=== PATIENT | male | born 1965 | race Two or more races ===

== ENCOUNTER 2017-10-30 13:29 | Inpatient (IN) | payer OTHER, MEDICARE ==
[~2017-10-30] VITALS: Ht 177.8 cm; Wt 58.1 kg
[2017-10-30] MEDS ORDERED: OXYC30TA2 PO (14:00)
[2017-10-30] MEDS ORDERED: DIAZ10TA4 PO (14:00)
[2017-10-30] MEDS ORDERED: OXYC30TA86 PO (14:00)
[2017-10-30] MEDS ORDERED: TRAM50TA2 PO (14:00)
--- NOTE | 2017-10-30 14:00 | NUR ---
BLOOD DONOR UNIT ASSISTANT NOTE RECEIVED PT. PT IS A DIRECT ADMIT FROM [facility]. A/OX4. NO S/S OF DISTRESS OR SOB. PT HAS C/O PAIN OF 6/10 AT SACRAL AREA. IV ACCESS LOCATED ON LEFT WRIST 22G, SL. DECUBITIS ULCERS NOTED ON BILATERAL HEELS, SACRUM, AND COCCYX. PT HAS A SUPRAPUBIC CATHETER, PATENT AND IN PLACE. SAFETY MEASURES IN PLACE, CALL LIGHT WITHIN REACH. WILL CONTINUE TO MONITOR.
[2017-10-30 15:02] VITALS: BP 130/74
[2017-10-30 16:00] VITALS: BP 130/76
[2017-10-30] MEDS ORDERED: MAG HYDROX/AL HYDROX/SIMETH 30 ML UDC PO PRN (17:00)
[2017-10-30] MEDS ORDERED: ZOLPIDEM TARTRATE 5 MG TABLET PO PRN (17:00)
[2017-10-30] MEDS ORDERED: ACETAMINOPHEN 325 MG TABLET PO PRN (17:00)
[2017-10-30] MEDS: CEFTRIAXONE 1 G in IV D5W 50 ML IV SCH (17:00)
[2017-10-30] MEDS ORDERED: MAGNESIUM HYDROXIDE 30 ML UDC PO PRN (17:00)
[2017-10-30] MEDS: oxyCODONE IR immediate release 5 MG CAPSULE PO PRN ×2 (17:16→23:08)
[2017-10-30] MEDS ORDERED: TRAMADOL HCL 50 MG TABLET PO PRN ×2 (17:30→18:30)
[2017-10-30] MEDS ORDERED: DIAZEPAM 10 MG TABLET PO PRN (18:30)
[2017-10-30] MEDS ORDERED: Medication Not On Formulary EA (Oxycodone Hcl 30 MG) PO PRN (18:30)
--- NOTE | 2017-10-30 19:19 | NUR ---
RN CLOSING NOTE PT IS IN BED RESTING. A/OX4. WOUND CULTURE TAKEN. DRESSINGS CHANGED. SAFETY MEASURES IN PLACE, CALL LIGHT WITHIN REACH. WILL ENDORSE TO FUEL CELL BINDER FOR TREMAYNE.
--- NOTE | 2017-10-30 19:29 | NUR ---
RN OPENING NOTES RECEIVED REPORT FROM ZANDER. PT AWAKE AND ALERT IN BED. NO APPARENT S/S OF SOB OR DISTRESS. L HAND IV #22, SL. INFORMED PT THAT OXYCONTIN WAS SCHEDULED Q12 AND NEXT DOSE WAS AVAILABLE AT 21:00. SAFETY PRECAUTIONS IN PLACE, BED IN A LOW, LOCKED POSITION, 2XSIDERAILS UP AND CALL LIGHT WITHIN REACH. WILL CONTINUE TO MONITOR.
[2017-10-30 20:00] VITALS: BP 99/65
[2017-10-30 20:09] VITALS: BP 95/56
[2017-10-30] MEDS: oxyCODONE HCL SR 10MG TAB.SR.12H PO SCH (21:10)
[2017-10-30] MEDS: ONDANSETRON HCL/PF 4 MG/2 ML VIAL IVP PRN (22:54)
--- NOTE | 2017-10-30 22:55 | NUR ---
PT REQUESTED PAIN MEDICATION AND MEDICATION FOR NAUSEA. WILL ADMINISTER PRN ZOFRAN AND PRN Q4HR OXYCONTIN IR FOR PAIN LEVEL (07/10). WILL CONTINUE TO MONITOR.
--- NOTE | 2017-10-31 03:20 | NUR ---
PT REQUESTED PAIN MEDICATION FOR A PAIN LEVEL OF (8/10). WILL ADMINISTER PRN OXYCONTIN IR Q4HR. WILL CONTINUE TO MONITOR.
[2017-10-31] MEDS: oxyCODONE IR immediate release 5 MG CAPSULE PO PRN ×4 (03:29→21:52)
[2017-10-31 06:50] LABS: BASOPHILS % (AUTO) 0.6 % (0.0-2.0); EOSINOPHILS # (AUTO) 0.2 /CMM (0.0-0.7); EOSINOPHILS % (AUTO) 2.6 % (0.0-6.0); HEMATOCRIT 33 % (33-45); HEMOGLOBIN 10.8 g/dL (11.5-14.8); LYMPHOCYTES # (AUTO) 2.3 /CMM (0.8-4.8); LYMPHOCYTES % (AUTO) 33.6 % (20.0-44.0); MEAN CORPUSCULAR HEMOGLOBIN 28 PG (26.0-33.0); MEAN CORPUSCULAR HGB CONC 33 g/dl (31.0-36.0); MEAN CORPUSCULAR VOLUME 86 fL (82-100); MONOCYTES # (AUTO) 0.5 /CMM (0.1-1.30); MONOCYTES % (AUTO) 7.3 % (2.0-12.0); NEUTROPHILS # (AUTO) 3.8 /CMM (1.8-8.9); NEUTROPHILS % (AUTO) 55.9 % (43.0-81.0); PLATELET COUNT (AUTO) 289 /CMM (150-450); RDW COEFFICIENT OF VARIATION 12.9 (11.5-15.0); RED BLOOD CELL COUNT(AUTO) 3.85 MIL/uL (4.0-5.2); WHITE BLOOD COUNT (AUTO) 6.8 K/uL (4.3-11.0)
--- NOTE | 2017-10-31 06:53 | NUR ---
RN CLOSING NOTES PT AWAKE AND ALERT IN BED. NO APPARENT S/S OF SOB OR DISTRESS. L HAND IV #22, SL. PT NEXT AVAILABLE DOSE OF PRN OXYCONTIN IR IS 0730. PAIN MANAGEMENT HAS BEEN THE PATIENT'S NUMBER ONE CONCERN. MRSA SWAB COMPLETED. SAFETY PRECAUTIONS IN PLACE, BED IN A LOW, LOCKED POSITION, 2XSIDERAILS UP AND CALL LIGHT WITHIN REACH. WILL ENDORSE TO THE DAY SHIFT NURSE FOR CONTINUITY OF CARE.
[2017-10-31 06:57] LABS: CALCIUM, SERUM 9.1 mg/dL (8.5-10.1); CREATININE 0.7 mg/dL (0.6-1.3); MAGNESIUM 1.9 mg/dL (1.8-2.4); PHOSPHORUS 3.8 mg/dL (2.5-4.9); POTASSIUM 3.8 mmol/L (3.5-5.1)
--- NOTE | 2017-10-31 07:23 | NUR ---
RN OPENING NOTES RECEIVED PT AWAKE IN BED IN NO ACUTE SIGNS OF DISTRESS. A/O X 4 AND VERBALLY RESPONSIVE. IV ACCESS ON L HAND G#22 INTACT AND PATENT, SL. ON ROOM AIR, BREATHING EVEN AND UNLABORED. HOB ELEVATED. BED IN A LOW, LOCKED POSITION WITH SIDE-RAILS UP X2. CALL LIGHT WITHIN REACH. WILL CONTINUE TO MONITOR PT ACCORDINGLY.
[2017-10-31 08:00] VITALS: BP 93/56
[2017-10-31] MEDS: oxyCODONE HCL SR 10MG TAB.SR.12H PO SCH ×2 (08:04→20:19)
--- NOTE | 2017-10-31 08:05 | NUR ---
RN NOTES PATIENT COMPLAINED OF PAIN ON THE SACRAL AREA WITH INTENSITY OF 10/10, OXYCONTIN 30MG TAB GIVEN P.O. WILL MONITOR EFFECTIVENESS OF PAIN MED.
--- NOTE | 2017-10-31 09:43 | NUR ---
WOUND CARE CONSULT: PT PRESENTS WITH MULTIPLE WOUNDS PRESENT ON ADMISSION INCLUDING BILATERAL ISCHIAL STAGE 4 ULCERS, SACRAL STAGE 4 ULCER, RT BUTTOCK STAGE 2 AND LEFT BUTTOCK UNSTAGEABLE ULCER WELL LOWER EXTREMITY WOUNDS (STAGE 4 LEFT HEEL AND LEFT FOOT ESCHAR). PT REFUSED TO REMOVE BACK SUPPORT BRACES, MAKING SKIN ASSESSMENT INCOMPLETE. PT STATES HAS OPEN AREA TO PENIS FROM PREVIOUS SURGERY. PT EXAMINED BY DR SANDERSON. ORDERS RECEIVED AND DISCUSSED WITH NURSING STAFF. ALL SKIN PROTECTION RECOMMENDATIONS MADE AND DISCUSSED WITH NURSING STAFF. PT HAS SUPRAPUBIC CATH. ANDREA ISOFLEX LOW AIRLOSS BED TO BE PLACED WHEN AVAILABLE. WILL SEE PRN. PT STATES HAS NO APPETITE. MD IN AGREEMENT WITH PLAN OF CARE. Addendum: 10/31/17 at 0947 by EVENS VÁSQUEZ WNDNU Amended: Links added.
[2017-10-31] MEDS ORDERED: Z GUARD REMEDY 2 OZ OINT TP PRN (10:00)
--- NOTE | 2017-10-31 10:35 | NUR ---
RN NOTES PT SEEN AND EVALUATED BY FRANCISCO JAVIER SAMANO DPM WITH ORDER TO OBTAIN CONSENT FOR DEBRIDEMENT OF LEFT HEEL WOUND. PROCEDURE WAS EXPLAINED TO PT AND VERBALIZED UNDERSTANDING. CONSENT SIGNED BY PT AND FILED ON CHART.
[2017-10-31] MEDS: Z GUARD REMEDY 2 OZ OINT TP PRN (11:21)
[2017-10-31] MEDS: HYDROGEL DRESSING 90 GM TUBE TP SCH (11:21)
[2017-10-31] MEDS: Z GUARD REMEDY 2 OZ OINT TP SCH (11:22)
[2017-10-31] MEDS: NEOMY SULF/BACITRAC ZN/POLY 15 GM TUBE TP SCH (11:22)
--- NOTE | 2017-10-31 11:31 | NUR ---
RN NOTES WOUND DEBRIDEMENT OF LEFT HEEL WOUND DONE BT DR GAY. DRESSING INTACT, DRY WITH NO ACTIVE BLEEDING NOTED. WILL CONTINUE TO MONITOR
[2017-10-31] MEDS: ONDANSETRON HCL/PF 4 MG/2 ML VIAL IVP PRN ×2 (12:01→21:35)
--- NOTE | 2017-10-31 15:02 | NUR ---
RN NOTES PT SEEN AND EVALUATED BY COUNTER TACKER WITH RECOMMENDATION TO GIVE PROSTAT 30ML BID, ZINC SULFATE 220MG DAILY AND VIT C 500MG DAILY, INFORMED DR WALSH AND AGREED. ORDERS CARRIED OUT.
[2017-10-31 16:00] VITALS: BP 111/65
[2017-10-31] MEDS: PROSOURCE / PROSTAT (PYXIS) 30 ML UDC GT SCH (16:30)
[2017-10-31] MEDS: CEFTRIAXONE 1 G in IV D5W 50 ML IV SCH (16:30)
--- NOTE | 2017-10-31 17:17 | NUR ---
RN NOTES PT'S IV LINE ON LEFT HAND DISLODGED, MINIMAL BLEEDING NOTED, PRESSURE GAUZE APPLIED. NEW IV LINE INSERTED AT LEFT WRIST G#22 AND SECURED WITH TAPE. WILL CONTINUE TO MONITOR
[2017-10-31] MEDS ORDERED: BOOST PLUS FOOD-VANILLA 237 ML BOX PO SCH (18:00)
--- NOTE | 2017-10-31 19:15 | NUR ---
MS RN OPENING NOTES: RECEIVED PT RESTING IN BED AWAKE AND WATCHING TV. PT IS A/O X 4 AND VERBALLY RESPONSIVE. IV ACCESS ON L WRIST G#22 AND IS INTACT AND PATENT AND CURRENTLY S/L. ON ROOM AIR, BREATHING EVEN AND UNLABORED. HOB ELEVATED. MAINTAINED BED IN A LOW, LOCKED POSITION WITH SIDE-RAILS UP X2. CALL LIGHT WITHIN REACH. WILL CONTINUE TO MONITOR PT.
--- NOTE | 2017-10-31 19:19 | NUR ---
RN CLOSING NOTES PT RESTING IN BED AWAKE AND WATCHING TV. A/O X 4 AND VERBALLY RESPONSIVE. ALL NEEDS AND CARE ATTENDED WELL. IV ACCESS ON L WRIST G#22 INTACT AND PATENT, SL. ON ROOM AIR, BREATHING EVEN AND UNLABORED. HOB ELEVATED. MAINTAINED BED IN A LOW, LOCKED POSITION WITH SIDE-RAILS UP X2. CALL LIGHT WITHIN REACH. ENDORSED TO PEWTER FABRICATOR NURSE FOR TREMAYNE..
--- NOTE | 2017-10-31 20:31 | NUR ---
Met with patient, he is alert, stated he lives alone in an [address] at [address] [place]. He is not ambulatory due to paraplegia and developed multiple ulcers to back/sacral and both heels. He requires assistance with adl's. Has DME: wheelchair, shower bench and raised toilet seat. He has suprapubic catheter due ot neurogenic bladder. Patient has IHSS provider and would like assistance with reinstatement of IHSS if he goes home. He is currently on service with homehealth but he don't remember the contact info. Patient reports that he has been in and out between hospital, snf and home. Last SNF stay was last year at [facility] . Patient want to go to a SNF once discharge due to no support system at home but stated he has no more Medicare SNF days. Will contact [place] to request approval for SNF placement . Addendum: 10/31/17 at 2033 by ASHLIE OSORIO RN Amended: Links added.
[2017-10-31 21:07] VITALS: BP 102/68
[2017-11-01] MEDS: oxyCODONE IR immediate release 5 MG CAPSULE PO PRN ×5 (01:53→22:06)
[2017-11-01] MEDS: ONDANSETRON HCL/PF 4 MG/2 ML VIAL IVP PRN ×3 (05:31→22:07)
[2017-11-01] MEDS: DIAZEPAM 10 MG TABLET PO PRN ×2 (05:32→18:45)
--- NOTE | 2017-11-01 07:30 | NUR ---
RN OPENING NOTES RECEIVED PATIENT IN BED RESTING, A/OX4. NO ACUTE DISTRESS, NO SOB NOTED, DENIES PAIN AT THE MOMENT. IV SITE INTACT AND PATENT. KEPT PATIENT SAFE AND COMFORTABLE. BED IN LOW POSITION, HOB ELEVATED, LOCKED, SIDERAILS UP X2. CALL LIGHT IN REACH. WILL CONTINUE TO MONITOR ACCORDINGLY.
[2017-11-01 07:36] LABS: BASOPHILS % (AUTO) 0.6 % (0.0-2.0); EOSINOPHILS # (AUTO) 0.2 /CMM (0.0-0.7); EOSINOPHILS % (AUTO) 2.5 % (0.0-6.0); HEMATOCRIT 35 % (39-51); HEMOGLOBIN 11.8 g/dL (13.5-17.5); LYMPHOCYTES # (AUTO) 1.7 /CMM (0.8-4.8); LYMPHOCYTES % (AUTO) 28.3 % (20.0-44.0); MEAN CORPUSCULAR HEMOGLOBIN 29 PG (26.0-33.0); MEAN CORPUSCULAR HGB CONC 33 g/dl (31.0-36.0); MEAN CORPUSCULAR VOLUME 86 fL (80-96); MONOCYTES # (AUTO) 0.4 /CMM (0.1-1.30); MONOCYTES % (AUTO) 6.4 % (2.0-12.0); NEUTROPHILS # (AUTO) 3.8 /CMM (1.8-8.9); NEUTROPHILS % (AUTO) 62.2 % (43.0-81.0); PLATELET COUNT (AUTO) 310 /CMM (150-450); RDW COEFFICIENT OF VARIATION 12.5 (11.5-15.0); RED BLOOD CELL COUNT(AUTO) 4.13 MIL/uL (4.5-6.0); WHITE BLOOD COUNT (AUTO) 6.2 K/uL (4.3-11.0)
[2017-11-01 08:00] VITALS: BP 101/62
[2017-11-01 08:00] LABS: CREATININE 0.7 mg/dL (0.6-1.3)
[2017-11-01 08:23] VITALS: BP 101/62
[2017-11-01] MEDS: ZINC SULFATE 220 MG CAPSULE PO SCH (08:46)
[2017-11-01] MEDS: ASCORBIC ACID 500 MG TABLET PO SCH (08:46)
[2017-11-01] MEDS: oxyCODONE HCL SR 10MG TAB.SR.12H PO SCH ×2 (08:47→20:32)
[2017-11-01] MEDS: Z GUARD REMEDY 2 OZ OINT TP SCH (08:52)
[2017-11-01] MEDS: HYDROGEL DRESSING 90 GM TUBE TP PRN (08:52)
[2017-11-01] MEDS: CADEXOMER IODINE 40 GM TUBE TP SCH (09:00)
[2017-11-01] MEDS: PROSOURCE / PROSTAT (PYXIS) 30 ML UDC GT SCH ×2 (09:00→16:47)
[2017-11-01] MEDS: HYDROGEL DRESSING 90 GM TUBE TP SCH (09:19)
[2017-11-01] MEDS ORDERED: SILVER NITRATE APPLICATOR 1 EA BOX TP ONE (10:00)
[2017-11-01] MEDS ORDERED: LIDOCAINE 2%-EPI 1:100,000 30 ML VIAL TP ONE (10:00)
[2017-11-01] MEDS ORDERED: ENOXAPARIN SODIUM 40 MG/0.4 ML DISP.SYRIN SQ SCH (10:00)
[2017-11-01] MEDS: NEOMY SULF/BACITRAC ZN/POLY 15 GM TUBE TP SCH (10:11)
--- NOTE | 2017-11-01 11:00 | NUR ---
RN NOTES PULLED OUT OXYCONTIN IR IN OMNICELL BUT RETURNED IT, PULLED OUT WRONG DOSE. RETURNED WITNESS BY AIDEN GAXIOLA AND AIDEN CASE.
--- NOTE | 2017-11-01 15:26 | NUR ---
RN NOTES PER DR WALSH, NO ANTICOAGULANT.
[2017-11-01 16:00] VITALS: BP 96/65
[2017-11-01] MEDS: CEFTRIAXONE 1 G in IV D5W 50 ML IV SCH (16:10)
--- NOTE | 2017-11-01 19:26 | NUR ---
RN CLOSING NOTES PATIENT IN BED WATCHING TV. NO CHANGE IN PATIENT'S CONDITION. NO ACUTE DISTRESS, NO SOB NOTED. ALL NEEDS ATTENDED AND PROVIDED. WOUND CARE DONE. BED IN LOCKED, LOW POSITION, SIDERAILS UPX2. CALL LIGHT IN REACH. ENDORSED TO LITHOGRAPHER APPRENTICE RN FOR TREMAYNE.
[2017-11-01 20:00] VITALS: BP 100/61
--- NOTE | 2017-11-01 20:00 | NUR ---
RN NOTES RECEIVED PATIENT IN BED, ALERT AND ORIENTED X4, CALM AT THIS TIME, NO SOB, NO RESPIRATORY DISTRESS, ABLE TO VERBALIZE NEEDS, SPO2 AT ROOM AIR 96%, LUNG SOUNDS ARE CLEAR, ABDOMEN SOFT AND NON-TENDER, SUPRAPUBIC CATHETER DRAINING WELL OF CLEAR AND YELLOW URINE, PARAPLEGIC, REFUSED DVT PUMP, EXPLAINED TO PATIENT RISKS AND BENEFITS, PATIENT STILL REFUSED, WILL REQUIRE ASSISTANCE WITH ADLS. KEPT SAFE AND COMFORTABLE, CALL LIGHT WITHIN REACH.
[2017-11-01 20:52] VITALS: BP 100/61
[2017-11-02] MEDS: oxyCODONE IR immediate release 5 MG CAPSULE PO PRN ×6 (02:12→22:55)
[2017-11-02] MEDS: DIAZEPAM 10 MG TABLET PO PRN ×2 (04:26→17:07)
--- NOTE | 2017-11-02 06:30 | NUR ---
RN NOTES GIVEN OXYCODONE IR 30 MG PO PRN, VSS, COMPLAINING OF 9/10 SACRAL PAIN, MADE COMFORTABLE,
--- NOTE | 2017-11-02 06:33 | NUR ---
RN NOTES PATIENT IS ALERT AND AWAKE, NO RESPIRATORY DISTRESS, CALM, PROVIDED PAIN MEDICATION DURING SHIFT PRN, LEFT WRIST SALINE LOCK IS PATENT, OFFERED TO CHANGE SACRAL DRESSING, PATIENT REFUSED. PER PATIENT "THE DRESSING WAS CHANGED AT 1800 LAST NIGHT. I DON'T NEED IT RIGHT NOW." SUPRAPUBIC CATHETER DRAINING WELL, ALL NEEDS ATTENDED, CALL LIGHT WITHIN REACH.
--- NOTE | 2017-11-02 07:10 | NUR ---
RN NOTES PT IS AWAKE, RESTING COMFORTABLY IN BED WITH NO SIGNS OF DISTRESS. PT ON RA, RESPIRATIONS ARE EVEN AND UNLABORED. IV ON L WRIST, INTACT. SAFETY MEASURES ARE IN PLACE, CALL LIGHT IS IN REACH. WILL CONTINUE TO MONITOR
[2017-11-02 07:19] LABS: BASOPHILS % (AUTO) 0.5 % (0.0-2.0); EOSINOPHILS # (AUTO) 0.2 /CMM (0.0-0.7); EOSINOPHILS % (AUTO) 3.3 % (0.0-6.0); HEMATOCRIT 33 % (39-51); HEMOGLOBIN 11.2 g/dL (13.5-17.5); LYMPHOCYTES # (AUTO) 1.8 /CMM (0.8-4.8); MEAN CORPUSCULAR HEMOGLOBIN 29 PG (26.0-33.0); MEAN CORPUSCULAR HGB CONC 34 g/dl (31.0-36.0); MEAN CORPUSCULAR VOLUME 86 fL (80-96); MONOCYTES # (AUTO) 0.4 /CMM (0.1-1.30); MONOCYTES % (AUTO) 6.7 % (2.0-12.0); NEUTROPHILS # (AUTO) 3.5 /CMM (1.8-8.9); NEUTROPHILS % (AUTO) 58.5 % (43.0-81.0); PLATELET COUNT (AUTO) 271 /CMM (150-450); RDW COEFFICIENT OF VARIATION 12.7 (11.5-15.0); RED BLOOD CELL COUNT(AUTO) 3.84 MIL/uL (4.5-6.0); WHITE BLOOD COUNT (AUTO) 5.9 K/uL (4.3-11.0)
[2017-11-02 07:43] LABS: CALCIUM, SERUM 8.9 mg/dL (8.5-10.1); CREATININE 0.7 mg/dL (0.6-1.3); POTASSIUM 3.9 mmol/L (3.5-5.1)
[2017-11-02 08:00] VITALS: BP 105/64
[2017-11-02] MEDS: PROSOURCE / PROSTAT (PYXIS) 30 ML UDC GT SCH ×2 (08:36→16:14)
[2017-11-02] MEDS: ASCORBIC ACID 500 MG TABLET PO SCH (08:36)
[2017-11-02] MEDS: ZINC SULFATE 220 MG CAPSULE PO SCH (08:36)
[2017-11-02] MEDS: oxyCODONE HCL SR 10MG TAB.SR.12H PO SCH ×2 (08:36→20:49)
[2017-11-02] MEDS: HYDROGEL DRESSING 90 GM TUBE TP PRN (08:38)
[2017-11-02] MEDS: Z GUARD REMEDY 2 OZ OINT TP PRN (08:39)
[2017-11-02] MEDS: NEOMY SULF/BACITRAC ZN/POLY 15 GM TUBE TP SCH (08:39)
[2017-11-02] MEDS: Z GUARD REMEDY 2 OZ OINT TP SCH (08:39)
[2017-11-02] MEDS: HYDROGEL DRESSING 90 GM TUBE TP SCH (08:40)
[2017-11-02] MEDS: CADEXOMER IODINE 40 GM TUBE TP SCH (08:41)
[2017-11-02] MEDS: ONDANSETRON HCL/PF 4 MG/2 ML VIAL IVP PRN ×2 (09:58→16:14)
[2017-11-02 16:00] VITALS: BP 106/59
[2017-11-02] MEDS: CEFTRIAXONE 1 G in IV D5W 50 ML IV SCH (16:14)
--- NOTE | 2017-11-02 18:41 | NUR ---
RN NOTES PT IS SITTING UP IN BED, RESTING COMFORTABLY. PT ON RA, RESPIRATIONS ARE EVEN AND UNLABORED. IV ON L WRIST INTACT AND SL. PAIN MEDICATIONS WERE GIVEN ORDERED. WOUND DEBRIDEMENT DONE AND DRESSINGS CHANGED. ALL PT NEEDS MET. ROBLEDO CATHETER OUTPUT 1800ML. SAFETY MEASURES ARE IN PLACE, CALL LIGHT IS IN REACH. WILL ENDORSE TO COMMERCIAL PRINT SALESMAN RN FOR CONTINUITY OF CARE.
--- NOTE | 2017-11-02 19:30 | NUR ---
Received patient in the bed.No unusual signs or symptoms observed or reported,no signs of discomfort or distress.VS taken all are in the normal range
[2017-11-02 19:57] VITALS: BP 111/71
[2017-11-03] MEDS: oxyCODONE IR immediate release 5 MG CAPSULE PO PRN ×5 (03:00→22:23)
[2017-11-03] MEDS: oxyCODONE HCL SR 10MG TAB.SR.12H PO SCH ×2 (07:00→20:44)
[2017-11-03 07:12] LABS: BASOPHILS % (AUTO) 0.3 % (0.0-2.0); EOSINOPHILS # (AUTO) 0.2 /CMM (0.0-0.7); EOSINOPHILS % (AUTO) 2.3 % (0.0-6.0); HEMATOCRIT 42 % (39-51); HEMOGLOBIN 13.7 g/dL (13.5-17.5); LYMPHOCYTES # (AUTO) 1.9 /CMM (0.8-4.8); LYMPHOCYTES % (AUTO) 28.5 % (20.0-44.0); MEAN CORPUSCULAR HEMOGLOBIN 29 PG (26.0-33.0); MEAN CORPUSCULAR HGB CONC 33 g/dl (31.0-36.0); MEAN CORPUSCULAR VOLUME 86 fL (80-96); MONOCYTES # (AUTO) 0.4 /CMM (0.1-1.30); NEUTROPHILS # (AUTO) 4.2 /CMM (1.8-8.9); NEUTROPHILS % (AUTO) 62.9 % (43.0-81.0); PLATELET COUNT (AUTO) 342 /CMM (150-450); RDW COEFFICIENT OF VARIATION 12.4 (11.5-15.0); WHITE BLOOD COUNT (AUTO) 6.7 K/uL (4.3-11.0)
[2017-11-03 07:24] LABS: CALCIUM, SERUM 9.7 mg/dL (8.5-10.1); CREATININE 0.7 mg/dL (0.6-1.3); POTASSIUM 4.4 mmol/L (3.5-5.1)
--- NOTE | 2017-11-03 07:35 | NUR ---
MS RN OPENING NOTE PATIENT IS ALERT AND ORIENTED x4. NO PAIN AT THIS TIME. NO SOB OR DISTRESS NOTED. CALL LIGHT WITHIN REACH. SAFETY MEASURES IMPLEMENTED. ON ROOM AIR TOLERATING WELL. HAS SUPRAPUBIC CATHETER IN PLACE, NO SEDIMENT NOTED. REGULAR DIET AND TOLERATING WELL. LEFT ARM IV INTACT AND PATENT NO REDNESS OR SWELLING NOTED. HAS LABS TODAY, AWAITING RESULTS. WILL CONTINUE TO MONITOR THROUGHOUT SHIFT.
[2017-11-03 08:00] VITALS: BP 107/77
[2017-11-03] MEDS: CADEXOMER IODINE 40 GM TUBE TP SCH (08:22)
[2017-11-03] MEDS: Z GUARD REMEDY 2 OZ OINT TP SCH (08:22)
[2017-11-03] MEDS: ASCORBIC ACID 500 MG TABLET PO SCH (08:22)
[2017-11-03] MEDS: ZINC SULFATE 220 MG CAPSULE PO SCH (08:22)
[2017-11-03] MEDS: PROSOURCE / PROSTAT (PYXIS) 30 ML UDC GT SCH ×2 (08:22→16:20)
[2017-11-03] MEDS: HYDROGEL DRESSING 90 GM TUBE TP SCH (08:23)
[2017-11-03] MEDS: NEOMY SULF/BACITRAC ZN/POLY 15 GM TUBE TP SCH (08:23)
[2017-11-03] MEDS ORDERED: FEE PK DOSING 1 MIN EA MC ONE (09:41)
--- NOTE | 2017-11-03 11:00 | NUR ---
MS RN NOTE CHANGED WOUND DRESSINGS, PATIENT TOLERATED WELL, PAIN MEDICATION GIVEN PRIOR TO WOUND DRESSING CHANGE. WILL CHANGE NEEDED OR WHEN SOILED
[2017-11-03] MEDS: GENTAMICIN 300 MG in IV D5W 100 ML IV SCH (11:45)
--- NOTE | 2017-11-03 14:19 | NUR ---
MS RN NOTE PATIENT'S IV ON LEFT WRIST BEGAN TO LEAK. IV REMOVED. NEW IV STARTED ON RIGHT FOREARM 22G INTACT AND PATENT, FLUSHES WELL.
[2017-11-03 16:00] VITALS: BP 97/68
[2017-11-03] MEDS: DIAZEPAM 10 MG TABLET PO PRN (16:21)
--- NOTE | 2017-11-03 18:47 | NUR ---
MS RN CLOSING NOTE PATIENT IS ALERT AND ORIENTED x4. NO PAIN AT THIS TIME. NO SOB OR DISTRESS NOTED. CALL LIGHT WITHIN REACH AT ALL TIMES. SAFETY MEASURES IMPLEMENTED. ALL DUE MEDICATIONS GIVEN ORDERED. ALL NURSING CARE NEEDS ATTENDED TO. SUPRAPUBIC CATH IN PLACE, CLEAR AND YELLOW. ALL WOUND DRESSING CHANGED. AM LABS. IV ON RIGHT FOREARM INTACT AND PATENT. WILL ENDORSE TO FLAME HARDENING MACHINE OPERATOR FOR TREMAYNE.
--- NOTE | 2017-11-03 19:15 | NUR ---
RN NOTES RECEIVED PT AWAKE, SITTING IN BED, ON ROOM AIR AND TOLERATED WELL. PT ALERT AND ORIENTED X4, PAIN ON SACRAL AREA AT TOLERABLE LEVEL AT THIS TIME. IV ACCESS ON RIGHT FOREARM PATENT AND INTACT. SUPRAPUBIC CATH INTACT WITH CLEAR YELLOW URINE OUTPUT NOTED. WOUND DRESSING CLEAN, DRY AND INTACT. KEPT BED AT LOWEST POSITION, LOCKED, BED ALARM ON, SIDE RAILS X2 UP, WITH CALL LIGHT WITH IN REACH. KEPT COMFORTABLE AND ATTENDED. WILL CONTINUE TO MONITOR PT.
[2017-11-03 20:00] VITALS: BP 103/70
[2017-11-03 22:00] VITALS: BP 103/70
[2017-11-03] MEDS: ONDANSETRON HCL/PF 4 MG/2 ML VIAL IVP PRN (22:21)
--- NOTE | 2017-11-03 22:21 | NUR ---
RN NOTES PT FEELS NAUSEATED, ZOFRAN 4 MG GIVEN IVP. WILL CONTINUE TO MONITOR PT.
--- NOTE | 2017-11-03 22:23 | NUR ---
RN NOTES PT COMPLAINS 8/10 PAIN ON SACRAL AREA, OXY IR 30 MG GIVEN PO AND TOLERATED WELL. WILL CONTINUE TO MONITOR PT.
[2017-11-04] MEDS: oxyCODONE IR immediate release 5 MG CAPSULE PO PRN ×5 (02:39→19:57)
--- NOTE | 2017-11-04 02:39 | NUR ---
RN NOTES PT COMPLAINS OF 8/10 PAIN ON SACRAL AREA, OXY IR 30 MG TAB GIVEN PO. WILL CONTINUE TO MONITOR PT.
[2017-11-04 06:33] LABS: BASOPHILS % (AUTO) 0.4 % (0.0-2.0); EOSINOPHILS # (AUTO) 0.2 /CMM (0.0-0.7); EOSINOPHILS % (AUTO) 3.3 % (0.0-6.0); HEMATOCRIT 37 % (39-51); LYMPHOCYTES % (AUTO) 27.7 % (20.0-44.0); MEAN CORPUSCULAR HEMOGLOBIN 28 PG (26.0-33.0); MEAN CORPUSCULAR HGB CONC 33 g/dl (31.0-36.0); MEAN CORPUSCULAR VOLUME 87 fL (80-96); MONOCYTES # (AUTO) 0.5 /CMM (0.1-1.30); MONOCYTES % (AUTO) 7.7 % (2.0-12.0); NEUTROPHILS # (AUTO) 4.3 /CMM (1.8-8.9); NEUTROPHILS % (AUTO) 60.9 % (43.0-81.0); PLATELET COUNT (AUTO) 318 /CMM (150-450); RDW COEFFICIENT OF VARIATION 12.8 (11.5-15.0); RED BLOOD CELL COUNT(AUTO) 4.26 MIL/uL (4.5-6.0)
--- NOTE | 2017-11-04 06:42 | NUR ---
RN NOTES PT COMPLAINS OF 8/10 PAIN ON THE SACRAL AREA, OXY IR 30 MG TAB GIVEN PO AND TOLERATED WELL. WILL CONTINUE TO MONITOR PT.
[2017-11-04 06:43] LABS: CALCIUM, SERUM 9.3 mg/dL (8.5-10.1); CREATININE 0.7 mg/dL (0.6-1.3); POTASSIUM 4.2 mmol/L (3.5-5.1)
--- NOTE | 2017-11-04 07:00 | NUR ---
RN NOTES PT SLEPT INTERMITTENTLY DURING THE NIGHT. VITAL SIGNS STABLE, AFEBRILE. ON ROOM AIR AND TOLERATED WELL. PT FEELS NAUSEATED X1 CONTROLLED WITH ZOFRAN. KEPT PAIN AT TOLERABLE LEVEL. WOUND DRESSING INTACT, CLEAN AND DRY . SUPRAPUBIC CATH INTACT AND DRAINING WELL.. ALL NEEDS ATTENDED. SAFETY MEASURES AND FALL PRECAUTION OBSERVED. WILL ENDORSE TO MORNING RN FOR CONTINUITY OF CARE.
--- NOTE | 2017-11-04 07:30 | NUR ---
MS RN OPENING NOTE PATIENT IS ALERT AND ORIENTED x4. NO PAIN AT THIS TIME. NO SOB OR DISTRESS NOTED. CALL LIGHT WITHIN REACH. SAFETY MEASURES IMPLEMENTED. ABLE TO COMMUNICATE NEEDS. IV ON RIGHT FOREARM INTACT AND PATENT NO REDNESS OR SWELLING NOTED. SUPRAPUBIC CATHETER IN PLACE, CLEAR YELLOW URINE PRESENT. WOUND TREATMENT TO BE DONE ON SHIFT. BEDREST. WILL CONTINUE TO MONITOR PATIENT THROUGHOUT SHIFT
[2017-11-04 08:00] VITALS: BP 118/78
[2017-11-04] MEDS: oxyCODONE HCL SR 10MG TAB.SR.12H PO SCH ×2 (08:24→21:27)
[2017-11-04] MEDS: ASCORBIC ACID 500 MG TABLET PO SCH (08:25)
[2017-11-04] MEDS: PROSOURCE / PROSTAT (PYXIS) 30 ML UDC GT SCH ×2 (08:25→16:42)
[2017-11-04] MEDS: ZINC SULFATE 220 MG CAPSULE PO SCH (08:25)
[2017-11-04] MEDS: CADEXOMER IODINE 40 GM TUBE TP SCH (09:12)
[2017-11-04] MEDS: NEOMY SULF/BACITRAC ZN/POLY 15 GM TUBE TP SCH (09:12)
[2017-11-04] MEDS: Z GUARD REMEDY 2 OZ OINT TP SCH (09:12)
[2017-11-04] MEDS: HYDROGEL DRESSING 90 GM TUBE TP SCH (09:12)
[2017-11-04] MEDS: GENTAMICIN 300 MG in IV D5W 100 ML IV SCH (11:20)
[2017-11-04] MEDS: ONDANSETRON HCL/PF 4 MG/2 ML VIAL IVP PRN (14:31)
[2017-11-04 16:00] VITALS: BP 112/76
[2017-11-04] MEDS: DIAZEPAM 10 MG TABLET PO PRN (18:08)
--- NOTE | 2017-11-04 18:38 | NUR ---
MS RN CLOSING NOTE PATIENT IS ALERT AND ORIENTED x4. NO PAIN AT THIS TIME. NO SOB OR DISTRESS NOTED. CALL LIGHT WITHIN REACH AT ALL TIMES. SAFETY MEASURES IMPLEMENTED. ALL DUE MEDICATIONS GIVEN ORDERED. IV INTACT AND PATENT NO REDNESS OR SWELLING NOTED. PATIENT STATES THAT HE BECOMES ITCHY AFTER RECEIVING ANTIBIOTIC, WILL NOTIFY MD. WOUND TREATMENT DONE ON SHIFT. PATIENT REFUSED BED BATH. WILL ENDORSE TO BUYER TOBACCO HEAD NURSE FOR TREMAYNE
--- NOTE | 2017-11-04 18:59 | NUR ---
MS RN NOTE DR GOMEZ CALLED FOR BENADRYL ORDER. AWAITING CALL BACK FOR ORDER. WILL ENDORSE TO CONSTRUCTION PROJECT MGR RN
--- NOTE | 2017-11-04 19:07 | NUR ---
MS RN NOTE RECEIVED ORDERS FROM DR. GOMEZ. NEW ORDER NOTED AND CARRIED OUT
[2017-11-04] MEDS ORDERED: diphenhydrAMINE HCL 25 MG CAPSULE PO PRN (19:30)
--- NOTE | 2017-11-04 19:52 | NUR ---
RN NOTES PATIENT IN BED, ALERT AND ORIENTED X4, CALM, NO SOB, TOLERATING ROOM AIR, SPO2 98%, HAS CHRONIC PAIN, REQUIRES PAIN MEDICATION [id number]. BEING CLOSELY MONITORED FOR ASE OF NARCOTICS, SUPRAPUBIC CATHETER DRAINING WELL, KEPT SAFE AND COMFORTABLE, CALL LIGHT WITHIN REACH.
[2017-11-04 20:00] VITALS: BP 108/65
[2017-11-04 20:14] VITALS: BP 108/65
[2017-11-05] MEDS: oxyCODONE IR immediate release 5 MG CAPSULE PO PRN ×5 (00:08→22:52)
--- NOTE | 2017-11-05 05:37 | NUR ---
RN NOTES OFFERED WOUND CARE, PATIENT REFUSED, PER PATIENT "NOT AT THIS TIME."
--- NOTE | 2017-11-05 06:29 | NUR ---
RN NOTES PATIENT IN BED, ALERT AND AWAKE, NO SOB, NO RESIDUAL DROWSINESS FROM NARCOTIC PAIN MEDICATION, NO RESPIRATORY DISTRESS, PROVIDED PAIN MEDICATION NEEDED, ALL NEEDS ATTENDED, CALL LIGHT WITHIN REACH.
[2017-11-05 08:00] VITALS: BP 126/81
--- NOTE | 2017-11-05 08:12 | NUR ---
RN OPENING NOTES RECEIVED PATIENT RESTING COMFORTABLY IN BED. AOX4. COMPLAINING OF PAIN ON THE SACRUM AND ABDOMEN. DENIES SOB OR CP. RESPIRATIONS EVEN AND UNLABORED. NO ACUTE DISTRESS. PATIENT IS A PARAPLEGIC. SUPRAPUBIC CATHETER IN PLACE DRAINING CLOUDY YELLOW URINE. IV ACCESS ON THE RFA 22G PATENT AND INTACT. BED LOCKED IN THE LOWEST POSITION WITH SIDE RAILS UP X2. CALL LIGHT WITHIN REACH. WILL CONTINUE TO MONITOR ASSESS AND EDUCATED PATIENT THROUGHOUT SHIFT.
[2017-11-05] MEDS: oxyCODONE HCL SR 10MG TAB.SR.12H PO SCH ×2 (09:48→21:13)
[2017-11-05] MEDS: ZINC SULFATE 220 MG CAPSULE PO SCH (09:48)
[2017-11-05] MEDS: DIAZEPAM 10 MG TABLET PO PRN (09:48)
[2017-11-05] MEDS: ASCORBIC ACID 500 MG TABLET PO SCH (09:48)
[2017-11-05] MEDS: NEOMY SULF/BACITRAC ZN/POLY 15 GM TUBE TP SCH (09:48)
[2017-11-05] MEDS: CADEXOMER IODINE 40 GM TUBE TP SCH (09:49)
[2017-11-05] MEDS: Z GUARD REMEDY 2 OZ OINT TP SCH (09:51)
[2017-11-05] MEDS: HYDROGEL DRESSING 90 GM TUBE TP SCH (09:52)
[2017-11-05] MEDS: PROSOURCE / PROSTAT (PYXIS) 30 ML UDC GT SCH ×2 (09:53→16:41)
--- NOTE | 2017-11-05 11:30 | NUR ---
RN NTOES DRESSING CHANGE DONE. FOLLOWED PER WOUND CARE. WILL CONTINUE TO MANAGE PAIN.
[2017-11-05 11:52] LABS: CALCIUM, SERUM 9.5 mg/dL (8.5-10.1); POTASSIUM 4.4 mmol/L (3.5-5.1)
[2017-11-05] MEDS: GENTAMICIN 300 MG in IV D5W 100 ML IV SCH (11:57)
[2017-11-05 16:00] VITALS: BP 97/55
--- NOTE | 2017-11-05 19:00 | NUR ---
RN NOTES PATIENT CARE CONTINUED INTO NEXT SHIFT.
[2017-11-05 20:00] VITALS: BP 105/69
[2017-11-06] MEDS: oxyCODONE IR immediate release 5 MG CAPSULE PO PRN ×4 (03:42→21:25)
--- NOTE | 2017-11-06 07:00 | NUR ---
RN CLOSING NOTES PATIENT RESTING COMFORTABLE IN BED. AOX4. RESPIRATION EVEN AND UNLABORED. NO ACUTE DISTRESS. IV ACCESS RFA 22G PATENT AND INTACT. DENIES CP OR SOB. DRESSING CLEAN AND INTACT. PATIENT REQUESTING FOR VALIUM AND COMPLAINING OF PAIN IN THE SACRUM. ENDORSED TO AM SHIFT. ALL NEEDS MET. ALL MEDS GIVEN APPROPRIATE THROUGHOUT 24 HR. BED LOCKED IN THE LOWEST POSITION WITH SIDERAILS UP X2. WILL ENDORSE TO MORNING SHIFT RN FOR TREMAYNE.
--- NOTE | 2017-11-06 07:30 | NUR ---
MS/RN Patient received Patient received from caustic cresylate shift superintendent. Requesting valium and nausea, both to be administered. Bed in low setting, brakes locked, side rails X3 in upright position, call light within reach. Will continue to monitor and ensure safety.
[2017-11-06] MEDS: ONDANSETRON HCL/PF 4 MG/2 ML VIAL IVP PRN (07:53)
[2017-11-06] MEDS: DIAZEPAM 10 MG TABLET PO PRN ×2 (07:53→17:29)
[2017-11-06 08:00] VITALS: BP 98/60
[2017-11-06 08:27] LABS: CALCIUM, SERUM 9.3 mg/dL (8.5-10.1); CREATININE 0.8 mg/dL (0.6-1.3); POTASSIUM 4.1 mmol/L (3.5-5.1)
[2017-11-06] MEDS: HYDROGEL DRESSING 90 GM TUBE TP SCH (09:00)
--- NOTE | 2017-11-06 09:00 | NUR ---
MS/RN Medications Morning medications administered as ordered.
[2017-11-06] MEDS: oxyCODONE HCL SR 10MG TAB.SR.12H PO SCH ×2 (09:27→20:14)
[2017-11-06] MEDS: ZINC SULFATE 220 MG CAPSULE PO SCH (09:28)
[2017-11-06] MEDS: ASCORBIC ACID 500 MG TABLET PO SCH (09:28)
[2017-11-06] MEDS: PROSOURCE / PROSTAT (PYXIS) 30 ML UDC GT SCH ×2 (09:28→17:55)
[2017-11-06] MEDS: Z GUARD REMEDY 2 OZ OINT TP SCH (09:58)
[2017-11-06] MEDS: CADEXOMER IODINE 40 GM TUBE TP SCH (09:58)
[2017-11-06] MEDS: NEOMY SULF/BACITRAC ZN/POLY 15 GM TUBE TP SCH (09:59)
[2017-11-06] MEDS: HYDROGEL DRESSING 90 GM TUBE TP PRN ×2 (09:59→10:01)
--- NOTE | 2017-11-06 10:15 | NUR ---
MS/RN S/B Dr Martinez Seen by Dr Martinez - to continue with current plan of care. casino cage manager to enquire as to if patient will qualify for fdc placement for wound care.
[2017-11-06] MEDS: GENTAMICIN 300 MG in IV D5W 100 ML IV SCH (12:06)
--- NOTE | 2017-11-06 13:00 | NUR ---
MS/clinical care manager All wound redressed as ordered.
--- NOTE | 2017-11-06 13:20 | NUR ---
MS/front end application developer order Informed by charge nurse that patient is to be discharged to home today, picking belt operator arranged for 3p. Dressings removed and pictures taken. Exit care prepared, only vital signs to be entered.
--- NOTE | 2017-11-06 13:59 | NUR ---
MS/photo finisher on hold Per Lisbeth (case aide) discharge to be held until tomorrow to allow patient time to arrange help at home and for prescriptions to be filled.
[2017-11-06 16:00] VITALS: BP 95/56
[2017-11-06 16:27] VITALS: BP 95/56
[2017-11-06 20:00] VITALS: BP 98/58
--- NOTE | 2017-11-06 20:15 | NUR ---
MS RN NOTE: PATIENT RESTING IN BED, NO ACUTE DISTRESS NOTED. BREATHING EVEN AND UNLABORED, NO SOB NOTED. IV TO LFA IN PLACE. SUPRAPUBIC CATHETER IN PLACE, DRAINING CLEAR YELLOW URINE. PATIENT REQUESTING FOR PAIN MEDICATION, [facility] DOES NOT HAVE SUPPLY OF OXY IR 30MG, CALL PHARMACY TO REFILL. GAVE OXYCONTIN 30MG SCHEDULED FOR 2099. BED LOCKED AND IN LOWEST POSITION, CALL LIGHT IN REACH. WILL CONTINUE TO MONITOR.
[2017-11-07] MEDS: oxyCODONE IR immediate release 5 MG CAPSULE PO PRN ×3 (02:14→13:30)
--- NOTE | 2017-11-07 02:15 | NUR ---
MS RN NOTE: PATIENT COMPLAINS OF PAIN TO SACRAL AREA 9/10, OXY IR 30MG ORAL GIVEN PER MD ORDER. WILL CONTINUE TO MONITOR.
[2017-11-07] MEDS: DIAZEPAM 10 MG TABLET PO PRN (05:46)
--- NOTE | 2017-11-07 06:30 | NUR ---
MS RN NOTE: PATIENT RESTING IN BED, NO ACUTE DISTRESS NOTED. BREATHING EVEN AND UNLABORED, NO SOB NOTED. IV TO LFA IN PLACE. SUPRAPUBIC CATHETER IN PLACE, DRAINED 1750 ML OF CLEAR YELLOW URINE. DRESSINGS IN PLACE TO BOTH HEELS AND SACRAL AREA. BED LOCKED AND IN LOWEST POSITION, CALL LIGHT IN REACH. WILL ENDORSE TO DAY NURSE TO CONTINUE WITH PLAN OF CARE.
[2017-11-07 07:00] LABS: CALCIUM, SERUM 9.4 mg/dL (8.5-10.1); CREATININE 0.7 mg/dL (0.6-1.3); POTASSIUM 4.3 mmol/L (3.5-5.1)
--- NOTE | 2017-11-07 07:25 | NUR ---
RN OPEN NOTES RECEIVED REPORT FROM INFORMATION TECHNOLOGY INTERN NURSE. PATIENT IS IN BED, AWAKE, ALERT AND ORIENTED TO NAME, PLACE AND TIME. NO SIGNS AND SYMPTOMS OF DISTRESS. PAIN LEVEL 9/10. WILL CONTINUE TO MONITOR AND ASSESS PATIENT.
[2017-11-07] MEDS: ONDANSETRON HCL/PF 4 MG/2 ML VIAL IVP PRN (07:48)
[2017-11-07] MEDS: PROSOURCE / PROSTAT (PYXIS) 30 ML UDC GT SCH (07:53)
[2017-11-07] MEDS: ASCORBIC ACID 500 MG TABLET PO SCH (07:54)
[2017-11-07] MEDS: ZINC SULFATE 220 MG CAPSULE PO SCH (07:54)
[2017-11-07] MEDS: oxyCODONE HCL SR 10MG TAB.SR.12H PO SCH (07:55)
[2017-11-07] MEDS: Z GUARD REMEDY 2 OZ OINT TP SCH (07:56)
[2017-11-07] MEDS: CADEXOMER IODINE 40 GM TUBE TP SCH (07:56)
[2017-11-07] MEDS: NEOMY SULF/BACITRAC ZN/POLY 15 GM TUBE TP SCH (07:56)
[2017-11-07] MEDS: HYDROGEL DRESSING 90 GM TUBE TP PRN ×2 (07:56→09:21)
[2017-11-07] MEDS: HYDROGEL DRESSING 90 GM TUBE TP SCH (09:23)
[2017-11-07] MEDS: GENTAMICIN 300 MG in IV D5W 100 ML IV SCH (10:52)
--- NOTE | 2017-11-07 11:00 | NUR ---
DRESSING CHANGE COMPLETED PER WOUND CARE INSTRUCTION AND HOSPITAL POLICY
[2017-11-07] MEDS ORDERED: DIAZ10TA4 PO (12:25)
[2017-11-07] MEDS ORDERED: GENT80PI6 IV (12:25)
[2017-11-07] MEDS ORDERED: OXYC30TA86 PO (12:25)
[2017-11-07] MEDS ORDERED: RXGEN XX (12:25)
[2017-11-07] MEDS ORDERED: OXYC30TA2 PO (12:25)
--- NOTE | 2017-11-07 14:00 | NUR ---
DISCHARGE ORDER RECEIVED. PICTURE TAKEN AND DRESSING CHANGE COMPLETED (AGAIN) PER WOUND CARE INSTRUCTION AND HOSPITAL POLICY
--- NOTE | 2017-11-07 15:11 | NUR ---
ENERGY ECONOMIST NOTES PATIENT DISCHARGE ORDER RECEIVED. PATIENT IS LEAVING IN A STABLE [id number]. NO SIGNS AND SYMPTOMS OF DISTRESS OR PAIN. PATIENT IS GOING HOME WITH HOME HEALTH ([facility] ALL DISCHARGE INSTRUCTIONS EXPLAINED TO PATIENT AND PATIENT VERBALIZED UNDERSTANDING. ALL PERSONAL BELONGING WITH PATIENT AT TIME OF DISCHARGE. INSTRUCTION FORM AND BELONGING FORM SIGNED BY PATIENT AND PLACED IN THE CHART. NO NEW CONCERNS IDENTIFIED. PICTURES WERE TAKEN AND PLACED INT THE CHART. PRESCRIPTIONS GAVE TO PATIENT. IV SITE REMOVED. ID BAND REMOVED. PATIENT PICKED UP BY AMBULANCE AND 2 electrical prospecting operator.
== END 2017-11-07 15:15 | disposition home health service (06) | DRG 951 ==
LOC: EDSEX 13:29 → MED 13:29
PROVIDERS: ADMIT Family Medicine; ATTEND Family Medicine
PROC: 0JBR0ZZ Excision of Left Foot Subcutaneous Tissue and Fascia, Open Approach (ICD-10-PCS; principal; 2017-10-31)
PROC: 0KBP0ZZ Excision of Left Hip Muscle, Open Approach (ICD-10-PCS; 2017-11-02)
PROC: 0KBN0ZZ Excision of Right Hip Muscle, Open Approach (ICD-10-PCS; 2017-11-02)
DX: N39.0 Urinary tract infection, site not specified (principal); N17.0 Acute kidney failure with tubular necrosis; L89.154 Pressure ulcer of sacral region, stage 4; E46 Unspecified protein-calorie malnutrition; L89.320 Pressure ulcer of left buttock, unstageable; L89.894 Pressure ulcer of other site, stage 4; L89.624 Pressure ulcer of left heel, stage 4; G82.20 Paraplegia, unspecified; D64.9 Anemia, unspecified; S31.20XA Unspecified open wound of penis, initial encounter; L89.611 Pressure ulcer of right heel, stage 1; Z91.81 History of falling; Z87.440 Personal history of urinary (tract) infections; Z87.11 Personal history of peptic ulcer disease; Z86.73 Personal history of transient ischemic attack (TIA), and cerebral infarction without residual deficits; I25.10 Atherosclerotic heart disease of native coronary artery without angina pectoris; G89.4 Chronic pain syndrome; L89.519 Pressure ulcer of right ankle, unspecified stage; X58.XXXA Exposure to other specified factors, initial encounter; Y92.009 Unspecified place in unspecified non-institutional (private) residence as the place of occurrence of the external cause; Z87.898 Personal history of other specified conditions; N35.9 Urethral stricture, unspecified; B96.5 Pseudomonas (aeruginosa) (mallei) (pseudomallei) as the cause of diseases classified elsewhere
CPT/HCPCS: 36415; 80048-TC; 80061-TC; 80170-TC; 83735-TC; 84100-TC; 85025-TC; 87081-TC; 87086-TC; 87186-TC; A6248; A6402; A6403; J0696; J1580; J1650; J2405; J3490; J7050; J7060; Z7610